=== PATIENT | female | born 1960 | race Hispanic/Latino ===

== ENCOUNTER 2020-03-08 18:33 | Emergency (ER) | payer OTHER, SELFPAY ==
[2020-03-08] MEDS ORDERED: KETOROLAC 30MG VIAL (30MG/ML) ONE (19:39)
[2020-03-08] MEDS ORDERED: ACETAMINOPHEN WITH CODEINE 1 TAB TAB ONE (19:39)
== END 2020-03-08 20:19 | disposition home or self-care (01) ==
LOC: EDH 18:33
DX: B02.9 Zoster without complications (principal); R10.9 Unspecified abdominal pain; Z90.710 Acquired absence of both cervix and uterus
CPT/HCPCS: 96372; 99283; J1885